=== PATIENT | male | born 1955 | race African-American/Black ===

== ENCOUNTER → 2020-06-04 | Outpatient (CLI) | payer MEDICARE ==
[~2020-06-04] MED LIST: FUROSEMIDE INJ 10 MG/ML 4 ML VIAL ONE
--- NOTE | 2020-06-04 19:52 | Diagnostic Imaging Report ---
Renal Scan with Lasix Washout Reason for exam: Hydronephrosis, unspecified Technique: Following intravenous administration of 10 mCi of Tc-99m MAG3, dynamic images of the kidneys in the posterior projection were obtained through 40 minutes. Lasix 40 mg was administered intravenously at 10 minutes post injection of the tracer. Report: Left kidney: Perfusion of the left kidney is prompt. The kidney has a a mildly elongated reniform shape with moderate thinning of the renal cortex. Extraction of tracer from the blood pool by the renal parenchyma is normal. Clearance of tracer from the renal parenchyma is mildly prolonged. The pelvicalyceal system is mild to moderately dilated, most prominently the renal pelvis. Increased pooling of tracer is seen within the renal pelvis and few dilated calyces. No net drainage of tracer from the pelvicalyceal system is seen prior to administration of Lasix. No washout of tracer from the pelvicalyceal system is seen following administration of Lasix, rendering an undefined T-1/2 (normal less than 15 minutes). No significant stasis of tracer is seen within the left ureter. Right kidney: Perfusion to the right kidney is prompt. The right kidney has a normal reniform shape. Extraction of tracer by the renal parenchyma is normal. Clearance of tracer from the renal parenchyma is prompt. The pelvicalyceal system is not dilated. Physiologic pooling of tracer is seen within the pelvicalyceal system. Drainage of tracer from the pelvicalyceal system is prompt and complete prior to administration of Lasix. No significant stasis of tracer is seen within the right ureter. Differential renal function: The left kidney contributes 39% of total renal function and the right kidney contributes 61% (normal 43-57%). Impression: 1. Some loss of renal parenchyma is present evidenced by thinning of the renal cortex. Decreased function is evidenced by mildly prolonged clearance of tracer from the renal parenchyma, consistent with chronic obstructive uropathy. These account for the decreased differential function of 39%. Mild to moderate hydronephrosis is present. Near complete physiologically significant obstruction of the renal collecting system is present. 2. The function of the right kidney is generally normal. No hydronephrosis is present. No physiologically significant obstruction of the renal collecting system is present. Signed by: Dr. Dorothy Pinzon M.D. on 06/04/2020 7:48 PM
== END ==
LOC: NM 07:25
PROVIDERS: ATTEND Urology
DX: N13.30 Unspecified hydronephrosis (principal)
CPT/HCPCS: 78708; A9562; J1940